=== PATIENT | female | born 1945 | race Caucasian/White ===

== ENCOUNTER 2019-09-22 07:45 | Day surgery (SDC) | payer MEDICARE ==
[~2019-09-22] VITALS: Ht 165.1 cm; Wt 80.7 kg
[~2019-09-22 07:45] MED LIST: ACTEMRA; FLUO20CA30 PO; LEVO150T11 PO; MULT-1203 PO; OLME20TA22 PO; SODIUM CHLORIDE 0.9% 1000ML 1,000 ML IV ONE; TIMO1DRO2 OP; VIT1CAPS47 PO; WARF2.5T85 PO
[2019-09-22 09:51] VITALS: BP 148/75
[2019-09-22 09:54] LABS: BASOPHILS % (AUTO) 0.7 % (0.0-5.0); EOSINOPHILS % (AUTO) 4.7 % (0.0-8.0); HEMATOCRIT 39.3 % (36-48); LYMPHOCYTES % (AUTO) 31.9 % (21.0-51.0); MEAN CORPUSCULAR HEMOGLOBIN 32.1 pg (27.0-33.0); MEAN CORPUSCULAR HGB CONC 33.4 g/dL (32.0-36.0); MEAN CORPUSCULAR VOLUME 96.3 fL (79-99); MONOCYTES % (AUTO) 22.5 % (3.0-13.0); NEUTROPHILS % (AUTO) 40.2 % (40.0-77.0); PLATELET COUNT (AUTO) 131 K/uL (130-400); RED BLOOD CELL COUNT(AUTO) 4.08 MIL/uL (4.00-5.50); RED CELL DISTRIBUTION WIDTH 13.5 % (11.0-15.5)
[2019-09-22 10:26] LABS: INR 1.93 (0.85-1.15); PROTHROMBIN TIME 19.8 SEC (9.6-11.6)
[2019-09-22] MEDS ORDERED: EPHEDRINE SULFATE 50 MG/ML AMPULE ONE (10:27)
[2019-09-22] MEDS ORDERED: PROPOFOL 10 MG/ML 20ML VIAL IV ONE (10:28)
[2019-09-22 10:39] VITALS: BP 134/75
[2019-09-22 10:44] VITALS: BP 155/70
[2019-09-22 10:49] VITALS: BP 162/74
[2019-09-22 10:54] VITALS: BP 168/83
== END 2019-09-22 11:05 | disposition home or self-care (01) ==
LOC: ENDO 07:45 → DAH 07:45 → ENDO 11:05
PROVIDERS: ATTEND Internal Medicine
DX: C20 Malignant neoplasm of rectum (principal); K62.89 Other specified diseases of anus and rectum; C21.8 Malignant neoplasm of overlapping sites of rectum, anus and anal canal; I10 Essential (primary) hypertension; E03.9 Hypothyroidism, unspecified; F32.9 Major depressive disorder, single episode, unspecified; M06.9 Rheumatoid arthritis, unspecified; R19.7 Diarrhea, unspecified; Z86.010 Personal history of colon polyps; Z79.899 Other long term (current) drug therapy; Z79.01 Long term (current) use of anticoagulants; Z98.51 Tubal ligation status; Z98.890 Other specified postprocedural states
CPT/HCPCS: 36415; 45341; 85025; 85610; A4215; A4221; A4222; A4223; A4606; A4615; A4663; J2704; J3490; J7030